=== PATIENT | female | born 1975 | race Caucasian/White ===

== ENCOUNTER 2016-12-28 05:32 | Inpatient (IN) | payer BC, OTHER ==
--- NOTE | 2016-12-25 08:49 | HP ---
DATE OF CLINIC: 12/16/2016 HAFSA BROWN : 1975 PLANNED PROCEDURE: Left total hip arthroplasty DATE OF PROCEDURE: December 28, 2016 SURGEON: Enrike Klein M.D. PCP: Dr. Charlie Pinon HISTORY OF PRESENT ILLNESS Hafsa Brown is a 41 year old female. * Medication list reviewed with patient allergy list reviewed with patient. Mrs. Brown is in today pre-operatively for her upcoming left total hip arthroplasty with Dr. Klein on 12/28/16. Patient presents in good spirits and is ready to proceed. She denies recent illness, change in health, or prior surgical complications. Her recent consult with Dr. Klein follows: 40-year-old female who is here for discussion of options related to her left hip. She has most recently been seeing Troy Pimentel as well as Dr. Velasquez. She has a history of a slipped capital femoral epiphysis at age 13. This was treated surgically with pinning. She had subsequent hardware removal in 1990. She initially did well, but unfortunately over the last couple of years she has had worsening problems including pain in her groin radiating laterally as well as a sensation of instability. She has tried Aleve without significant improvement. Pain is worse with loaded activities such as stairs, getting out of a chair and startup. She has no radicular symptoms. Minimal problems contralateral side. Treatment recently has included a corticosteroid injection by Dr. Velasquez in June 2015 with marked improvement for "a couple of months". She subsequently had a PRP injection on 10/22/15 that worked well, but was only temporary. She had a 2nd injection 12/16/15 that "never settled". She has modified her activities avoiding provocative activities. She has only mild rest pain. She does have a sensation of unequal leg lengths. Workup has included x-rays as well as a CT scan, both of which are available for my review. Comorbidities include reactive airway disease. She gives a history of "Rheumatoid Arthritis". There is no documentation supporting this. She is a non-smoker. CURRENT MEDICATION * Aleve 220 MG Tablet as needed 0 days, 0 refills * ProAir HFA 108 (90 Base) MCG/ACT Aerosol Solution as directed 30 days, 0 refills PAST MEDICAL/SURGICAL HISTORY Reported: Medical: History of Arthritis, Asthma, and Rheumatoid Arthritis. Surgical / Procedural: Prior surgery Left femur ephysesis 89 Left hip hardware removal 91, Cholecystectomy 2006, and Tonsilectomy 2001. Surgical: * Tonsillectomy * Cholecystectomy * Orthopedic surgery Hip SOCIAL HISTORY Behavioral: Daily coffee consumption and non-smoker never smoked. Smoking status: Never smoker. Alcohol: Alcohol use. ALLERGIES * Erythromycin Reaction: Nausea/Vomiting/Diarrhea * penicillin Reaction: Skin Rashes/Hives * Sulfur Reaction: Skin Rashes/Hives FAMILY HISTORY 4 children living REVIEW OF SYSTEMS Systemic: No fever and no recent weight change. Head: No head symptoms. Cardiovascular: No cardiovascular symptoms. Pulmonary: No pulmonary symptoms. Gastrointestinal: No gastrointestinal symptoms. Psychological: No psychological symptoms. Skin: No skin lesions and no rash. PHYSICAL FINDINGS * Vitals taken 12/16/2016 11:07 am BP-Sitting L 131/87 mmHg 100 - 120/56 - 80 BP Cuff Size Regular Pulse Rate-Sitting 64 bpm 50 - 100 Temp-Oral 97.3 F 96 - 101 Height 68.5 in 59 - 69 Weight 175 lbs 98 - 183 Body Mass Index 26.2 kg/m2 Body Surface Area 1.94 m2 Pain Level 6 Ears, Nose, Throat: * ENT: normal. Lungs: * Clear to auscultation. Cardiovascular: Heart Rate and Rhythm: * Normal. Abdomen: * Normal. Neurological: Motor: * Dominant Hand = Right Hand. Patient is a well-developed, well-nourished female no in acute distress, normal-appearing mood and affect. She has an antalgic, Trendelenburg gait worse at startup. There is some pelvic obliquity. Evaluation of the left hip girdle shows a well-healed prior longitudinal incision consistent with her previous surgery, anterolateral. No tenderness laterally over the trochanter, NT in the groin, NT in the sciatic notch. Supine flexion just past 80 degrees is uncomfortable with groin pain. She has also has significant discomfort with attempts at full extension. In flexion she has neutral internal rotation, 60 degrees ER, 35 degrees of abduction. Patient can adduct to the midline with some discomfort. Thigh is soft and NT. No atrophy or asymmetry compared to the contralateral side. Evaluation of the knee shows no effusion, no focal periarticular tenderness and full motion. She has a normal ligamentous exam. Calf is soft and NT. Distal light touch sensation and motor function are grossly intact and symmetric. Pulses are palpable. Supine SLR is negative. Contralateral hip shows non-irritable motion. No focal periarticular tenderness. TESTS Hip and pelvis films from 09/01/16 were reviewed as well as a CT scan from 09/10/16. These show findings consistent with left slipped capital femoral epiphysis. There is cystic changes likely from her previous screw track within the femoral head. She also has cystic change within the acetabulum seen best on the CT. She has femoral head retroversion likely secondary to her deformity from her previous slipped capital femoral epiphysis. She has degenerative changes with inferomedial spurring as well as superolateral narrowing. Contralateral hip shows blunting of the head and neck interface consistent with Cam type femoral acetabular impingement with a well maintained joint space. ASSESSMENT * Post-traumatic osteoarthritis of left hip History of slipped capital femoral epiphysis with secondary degenerative disease, left hip, and increasing functional restriction. Femoral acetabular impingement, right hip, relatively asymptomatic. PREVIOUS TESTS * Test: CBC WITH DIFF Report Date: 12/09/2016 WBC 7.3 10*3/mL MCV 90.1 fL BASOPHIL 0.6 % RBC 4.83 10*6/uL NEUTROPHILS 66.7 % MCH 29.8 pg MCHC 33.1 g/dL RDW 12.4 % PLATELET COUNT 305 10*3/mL IMM NEUT % 0.3 % IMM NEUT # 0.0 10*3/mL MONOCYTES 6.5 % EOSINOPHIL 1.8 % HCT 43.5 % HGB 14.4 g/L LYMPHOCYTE 24.1 % ANC 4.9 10*3/mL * Test: URINALYSIS Report Date: 12/09/2016 GLUCOSE NEGATIVE PH,URINE 6.0 SPEC. GRAVITY 1.025 KETONE NEGATIVE NITRITE NEGATIVE BLOOD TRACE BILIRUBIN NEGATIVE APPEARANCE CLEAR PROTEIN NEGATIVE COLOR YELLOW LEUK ESTERASE NEGATIVE UROBILINOGEN NORMAL * Test: PROTHROMBIN TIME Report Date: 12/09/2016 PROTIME 10.4 s INR 0.99 * Test: PARTIAL THROMBOPLASTIN TIME Report Date: 12/09/2016 APTT 24.7 s * Test: COMPREHENSIVE METABOLIC PANEL Report Date: 12/09/2016 ALT/SGPT 12 U/L ALBUMIN 4.2 g/dL ALB/GLOB RATIO 2.0 BUN 11 mg/dL BUN/CREAT RATIO 18 CALCIUM 9.4 mg/dL GLUCOSE 86 mg/dL CREATININE 0.6 mg/dL SODIUM 138 meq/L POTASSIUM 4.3 meq/L CHLORIDE 102 meq/L CARBON DIOXIDE 30 meq/L ANION GAP 10 meq/L TOT PROTEIN 6.3 g/dL Low GLOBULIN 2.1 g/dL Low BILI,TOTAL 1.2 mg/dL High AST/SGOT 12 U/L Low ALK PHOSPHATASE 43 U/L GFR 111 High * Test: MRSA SCREEN Report Date: 12/10/2016 MRSA SCREEN NEGATIVE * Test: MSSA SCREEN Report Date: 12/10/2016 MSSA SCREEN NEGATIVE FOR STAPHYLOCOCCUS AUREUS THERAPY * Patient not eligible for fall risk assessment. PLAN * Unilateral primary osteoarthritis, left hip Physical Therapy: PT [facility] [phone] * OTHER OxyCONTIN 10 MG T12A, 1 po q 12 hours-TO BE USED FOR AFTER SURGERY, 10 days, 0 refills TraMADol HCl 50 MG TABS, 1 po q 6 hours prn pain-TO BE USED FOR AFTER SURGERY, 5 days, 0 refills OxyCODONE HCl 5 MG TABS, 1-2 po q 4-6 hours for break thru pain if needed-TO BE USED FOR AFTER SURGERY, 5 days, 0 refills * Total hip replacement -Left Discussed with patient in detail the limitations, expectations as well as risks and possible complications of surgery including, but not limited to wound problems or infection, neurovascular injury, continued hip pain or dysfunction, postop instability including the possibility of dislocation and/or postop leg length discrepancy, and the possibility of prosthetic wear or failure over time that may require additional operative or non-operative treatment. Patient also realizes the perioperative risks including risks associated with anesthesia and would like to proceed. A full PAR conference was held, questions and concerns addressed and informed consent was obtained. Patient will be sent from my office for completion of the preoperative workup. Patient will use enteric coated aspirin 325mg daily for 6 weeks postoperatively for DVT prophylaxis. Patient would like to perform their postop PT at [facility] with total hip arthroplasty protocol. CARE TEAM Charlie Pinon MD [facility] CC: Charlie Pinon MD [facility] RS/sg
[~2016-12-28 05:32] MED LIST: CELECOXIB 200 MG CAPSULE PO ONE; CLINDAMYCIN 900 MG PREMIX 100 ML IV PRN; CLONIDINE HCL 0.1 MG/24 HR (7 DAY PATCH) TD SCH; FAMOTIDINE 20 MG TABLET PO ONE; GABAPENTIN 600 MG TABLET PO ONE; ONDANSETRON 4 MG/2ML 2 ML VIAL IV ONE; OXYCODONE HCL 10 MG TAB.SR PO ONE; TRAMADOL HCL 50 MG TABLET PO ONE
[2016-12-28] MEDS ORDERED: CLINDAMYCIN 900 MG PREMIX 50 ML IV ONE (05:53)
[2016-12-28] MEDS ORDERED: OXYCODONE HCL 10 MG TAB.SR PO ONE (05:54)
[2016-12-28] MEDS ORDERED: GABAPENTIN 600 MG TABLET ONE (05:54)
[2016-12-28] MEDS ORDERED: TRAMADOL HCL 50 MG TABLET ONE (05:54)
[2016-12-28] MEDS ORDERED: FAMOTIDINE 20 MG TABLET ONE (05:54)
[2016-12-28] MEDS ORDERED: ONDANSETRON 4 MG/2ML 2 ML VIAL ONE (05:54)
[2016-12-28] MEDS ORDERED: CLONIDINE HCL 0.1 MG/24 HR (7 DAY PATCH) TD ONE (05:55)
[2016-12-28] MEDS ORDERED: CELECOXIB 200 MG CAPSULE ONE (05:55)
[2016-12-28] MEDS ORDERED: LACTATED RINGERS 1,000 ML ONE (06:10)
[2016-12-28] MEDS ORDERED: IV START KIT ONE (06:11)
[2016-12-28] MEDS ORDERED: FENTANYL 100 MCG/2 ML VIAL ONE (06:31)
[2016-12-28] MEDS ORDERED: PROPOFOL 20 ML IV ONE ×2 (06:31)
[2016-12-28] MEDS ORDERED: MIDAZOLAM HCL 1 MG/ML 2ML VIAL ONE (06:31)
[2016-12-28] MEDS ORDERED: LIDOCAINE 2% (PRES FREE) 5 ML VIAL ONE (06:31)
[2016-12-28] MEDS ORDERED: SPINAL PROCEDURAL TRAY 1 EACH ONE (06:43)
[2016-12-28] MEDS ORDERED: METOPROLOL TARTRATE 1 MG/ML 5ML VIAL ONE ×2 (07:04→07:05)
[2016-12-28] MEDS ORDERED: MIDAZOLAM HCL 5 MG/5 ML VIAL ONE ×2 (07:05→08:28)
[2016-12-28] MEDS ORDERED: TRANEXAMIC ACID 1,000 MG in SODIUM CHLORIDE 0.9% 100 ML IV PRN (07:10)
[2016-12-28] MEDS ORDERED: BUPIVACAINE 0.25% (MDV) 20 ML in SODIUM CHLORIDE 0.9% FLUSH 20 ML IF PRN (07:10)
[2016-12-28] MEDS ORDERED: POLYMYXIN B SULFATE 500,000 UNITS, BACITRACIN 25,000 UNITS in SODIUM CHLORIDE 3 L IRRIG... IR PRN (07:10)
[2016-12-28] MEDS ORDERED: BUPIVACAINE 0.25% (MDV) 24 ML, MORPHINE SULFATE 8 MG, EPINEPHRINE 0.3 MG in SODIUM CHLO... IF PRN (07:10)
[2016-12-28] MEDS ORDERED: EPHEDRINE SULFATE UD SYR 25 MG 25 MG/5 ML SYRINGE IV ONE (09:02)
--- NOTE | 2016-12-28 09:51 | PCMBPN ---
Brief Post Op Note: Date of Procedure: 12/28/16 Preoperative Diagnosis: left hip DJD Postoperative Diagnosis: same Procedure: left DEYANIRA Surgeon: Enrike Klein MD Assist: Margarito Anesthesia: spinal (Adonis) Condition: stable to pAR Complications: none IV Fluids: 2500 mLs of LR Urine Output: 50 mLs Estimated Blood Loss: 200 mLs Tourniquet Time: [N/A] Specimens: [N/A] Implants: trilock Drains: none
[2016-12-28] MEDS ORDERED: MORPHINE SULFATE 4 MG/ML SYRINGE IV PRN (10:01)
[2016-12-28] MEDS ORDERED: PROMETHAZINE HCL 25 MG/ML VIAL IM PRN (10:01)
[2016-12-28] MEDS ORDERED: LABETALOL HCL 5 MG/ML 20ML VIAL IV PRN (10:01)
[2016-12-28] MEDS ORDERED: ONDANSETRON 4 MG/2ML 2 ML VIAL IV PRN ×2 (10:01→10:39)
[2016-12-28] MEDS ORDERED: NALOXONE HCL 0.4 MG/ML VIAL IV PRN (10:01)
[2016-12-28] MEDS ORDERED: ATROPINE SULFATE 0.4 MG/1 ML VIAL IV PRN (10:01)
[2016-12-28] MEDS ORDERED: MEPERIDINE 25 MG/ML SYRINGE IV PRN (10:01)
[2016-12-28] MEDS ORDERED: LACTATED RINGERS 1,000 ML IV SCH (10:15)
[2016-12-28] MEDS ORDERED: CLINDAMYCIN 600 MG PREMIX 600 MG in Premix (D5W) 50 ml 1 EACH IV SCH (10:39)
[2016-12-28] MEDS ORDERED: HYDROXYZINE PAMOATE 25 MG CAPSULE PO PRN (10:39)
[2016-12-28] MEDS ORDERED: TEMAZEPAM 15 MG CAPSULE PO PRN (10:39)
[2016-12-28] MEDS ORDERED: CALCIUM CARBONATE 500 MG TAB.CHEW PO PRN (10:39)
[2016-12-28] MEDS ORDERED: ALBUTEROL SULFATE 200 PUFFS/INH INHALER IH PRN (10:39)
[2016-12-28] MEDS ORDERED: TRAMADOL HCL 50 MG TABLET PO PRN ×2 (10:39→16:30)
--- NOTE | 2016-12-28 10:39 | RAD ---
PELVIS HISTORY: Postop left DEYANIRA COMPARISONS: CT 09/10/2016 and plain films 09/01/2016 FINDINGS: Single supine view of the pelvis demonstrates changes from total left hip arthroplasty. Hardware is intact without signs of failure or loosening given the single projection. No definite fracture or dislocation. IUD projects within the pelvis. The upper portions of the pelvis are not visualized off the edge of the image. IMPRESSION: Satisfactory postoperative exam.
[2016-12-28] MEDS ORDERED: ALBUTEROL SULFATE MDI 60 PUFFS/INHALER IH PRN (10:59)
[2016-12-28] MEDS ORDERED: PUMP TUBING ONE (11:06)
[2016-12-28] MEDS: HYDROMORPHONE HCL 0.5 MG/0.5 ML SYRINGE IV PRN ×2 (11:08→18:33)
[2016-12-28] MEDS: D5 1/2NS with 20 mEq KCL 1,000 ML IV SCH ×2 (11:08→19:38)
[2016-12-28 11:25] VITALS: BMI 25.8
[2016-12-28] MEDS: OXYCODONE HCL 5 MG TABLET PO PRN ×3 (11:42→21:00)
[2016-12-28] MEDS: ACETAMINOPHEN 500 MG TABLET PO SCH ×3 (11:42→22:11)
[2016-12-28] MEDS: CLINDAMYCIN 600 MG PREMIX 600 MG in Premix (D5W) 50 ml 1 EACH IV SCH ×2 (14:24→20:54)
[2016-12-28] MEDS: KETOROLAC TROMETHAMINE 30 MG/ML 1 ML VIAL IV PRN (15:39)
[2016-12-28] MEDS: ASCORBIC ACID 500 MG TABLET PO SCH (21:00)
[2016-12-28] MEDS: DOCUSATE SODIUM 100 MG CAPSULE PO SCH (21:00)
[2016-12-29] MEDS: KETOROLAC TROMETHAMINE 30 MG/ML 1 ML VIAL IV PRN ×2 (02:00→09:11)
[2016-12-29] MEDS: OXYCODONE HCL 5 MG TABLET PO PRN ×6 (02:01→21:55)
[2016-12-29] MEDS: HYDROMORPHONE HCL 0.5 MG/0.5 ML SYRINGE IV PRN ×2 (02:02→10:49)
[2016-12-29] MEDS: D5 1/2NS with 20 mEq KCL 1,000 ML IV SCH ×3 (03:51→17:52)
[2016-12-29] MEDS: ACETAMINOPHEN 500 MG TABLET PO SCH ×4 (03:52→21:55)
[2016-12-29] MEDS ORDERED: REMOVE PATCH 1 EACH UNIT TD SCH (05:30)
[2016-12-29 06:18] LABS: HEMATOCRIT 32.3 % (37.0-47.0); HEMOGLOBIN 10.5 gm/l (12.0-16.0); MEAN CELL VOLUME 93.4 fl (81.0-99.0); MEAN CORPUSCULAR HEMOGLOBIN 30.3 pg (27.0-31.0); MEAN CORPUSCULAR HGB CONC 32.5 g/dl (33.0-37.0); RED CELL DISTRIBUTION WIDTH 12.9 % (11.5-14.5)
[2016-12-29] MEDS: MULTIVITAMINS 1 TAB TABLET PO SCH (09:13)
[2016-12-29] MEDS: ASCORBIC ACID 500 MG TABLET PO SCH ×2 (09:13→21:42)
[2016-12-29] MEDS: CELECOXIB 200 MG CAPSULE PO SCH (09:13)
[2016-12-29] MEDS: ASPIRIN (ENTERIC COATED) 325 MG TABLET.EC PO SCH (09:13)
[2016-12-29] MEDS: DOCUSATE SODIUM 100 MG CAPSULE PO SCH ×2 (09:13→21:42)
[2016-12-29] MEDS ORDERED: MAGNESIUM HYDROXIDE 30 ML UDCUP PO PRN (09:52)
[2016-12-29] MEDS ORDERED: REMOVE PATCH 1 EACH UNIT TD ONE (09:52)
--- NOTE | 2016-12-29 11:04 | PDOC43 ---
- Subjective Findings: Pt seen this morning has just got back in bed. She has been up with PT/OT. States she seems painful since the activity. Otherwise seems to be doing well. Subjective: Reports Flatus, Reports Pain Tolerable, Denies Chest Pain, Denies Shortness of Breath, Denies Nausea, Denies Vomiting, Denies Fever - Objective Vital Signs Temperature 97.5 F 12/29/16 07:16 Pulse Rate 59 12/29/16 07:16 Respiratory Rate 16 12/29/16 07:16 Blood Pressure 96/57 12/29/16 07:16 O2 Saturation by Pulse Oximetry 99 12/29/16 07:16 Oxygen Delivery Method Room Air Oxygen Flow Rate 0 Laboratory 12/29/16 05:30 12/29/16 05:30 12/29/16 05:30 RBC 3.46 L MCHC 32.5 L Anion Gap 5 L Estimated GFR 111 H Calcium 8.0 L Active Medication Orders Category Date Time Status Acetaminophen [Tylenol] Med 12/28/16 10:39 Active 1,000 mg PO Q6H Albuterol Sulfate Mdi [Ventolin Hfa Mdi] Med 12/28/16 10:59 Active 0 puffs IH Q4-6H PRN Ascorbic Acid [Vitamin C] Med 12/28/16 21:00 Active 500 mg PO BID Aspirin (Enteric Coated) [Ecotrin] Med 12/29/16 09:00 Active 325 mg PO DAILY Atropine Sulfate Med 12/28/16 10:01 Active 0.2 mg IV X1 PRN Bisacodyl [Dulcolax] Med 12/31/16 09:52 Active 10 mg NM DAILY PRN Calcium Carbonate [Tums] Med 12/28/16 10:39 Active 1,000 - 2,000 mg PO Q2H PRN Celecoxib [Celebrex] Med 12/29/16 09:00 Active 200 mg PO DAILY D5 1/2NS with 20 mEq KCL [D51/2NS with 20 mEq KCL] 1, Med 12/28/16 10:39 Active 000 ml IV 125 mls/hr Docusate Sodium [Colace] Med 12/28/16 21:00 Active 100 mg PO BID Hydromorphone HCl [Dilaudid] Med 12/28/16 10:39 Active 0.5 mg IV Q1H PRN Hydroxyzine Pamoate [Vistaril] Med 12/28/16 10:39 Active 25 - 50 mg PO Q4H PRN Labetalol HCl [Trandate] Med 12/28/16 10:01 Active 5 mg IV Q5M PRN Magnesium Hydroxide [Milk of Magnesia] Med 12/29/16 09:52 Active 30 ml PO DAILY PRN Meperidine [Demerol] Med 12/28/16 10:01 Active 25 mg IV Q10M PRN Morphine Sulfate Med 12/28/16 10:01 Active 2 mg IV Q5M PRN Multivitamins [One-A-Day] Med 12/29/16 09:00 Active 1 tab PO DAILY Naloxone HCl [Narcan] Med 12/28/16 10:01 Active 0.2 mg IV X1 PRN Ondansetron 4 mg/2ml Vial [Zofran] Med 12/28/16 10:39 Active 4 - 6 mg IV Q6H PRN Ondansetron 4 mg/2ml Vial [Zofran] Med 12/28/16 10:01 Active 4 mg IV X1 PRN Oxycodone HCl [Roxicodone] Med 12/28/16 10:39 Active 5 - 10 mg PO Q4H PRN Promethazine HCl [Phenergan] Med 12/28/16 10:01 Active 12.5 - 25 mg IM X1 PRN Sodium Chloride 0.9% Flush [Normal Saline 10ml Flush] Med 12/28/16 10:39 Active 10 - 50 ml IV PRN PRN Sodium Chloride 0.9% Flush [Normal Saline 10ml Flush] Med 12/28/16 17:00 Active 10 ml IV Q8HR Temazepam [Restoril] Med 12/28/16 10:39 Active 15 mg PO BEDTIME PRN Tramadol HCl [Ultram] Med 12/28/16 16:30 Active 50 mg PO Q6H PRN Intake and Output 12/27/16 12/28/16 12/29/16 23:59 23:59 23:59 Intake Total 4025 3027 Output Total 0 1350 Balance 2000 1677 General: Afebrile HEENT: Atraumatic Lungs: Normal Air Movement Abdomen: Non-Distended Skin: Normal Color Neurological: Alert, Oriented x 4 Psych/Mental Status: Normal Affect, Normal Mood - Left Lower Extremity Motor: Extensor Hallucis Longus: 5/5, Tibialis Anterior: 5/5, Gastrocnemius: 5/5 , Peroneals: 5/5, Quadriceps: 3/5 Gross Sensation to Light Touch: Present: Deep Peroneal Nerve, Superficial Peroneal Nerve Motion: Calf soft NT gentle rom hip and knee with out pain Mod assist with SLR - Problems (1) Status post left hip replacement Status: AcuteAssessment/Plan: Pod#1 1. Physical Therapy:Mobilize with PT/OT. Encouraged bed exercise 2. Pain Control:Per protocol 3. DVT Prophylaxis: ASA foot pumps and mobility 4. Disposition:Doing fine at this point 5. Medical Issues:Anticipate DC tomorrow unless pain improves this after noon
[2016-12-30] MEDS: OXYCODONE HCL 5 MG TABLET PO PRN ×3 (03:09→11:54)
[2016-12-30] MEDS: ACETAMINOPHEN 500 MG TABLET PO SCH ×2 (04:24→10:38)
[2016-12-30] MEDS: D5 1/2NS with 20 mEq KCL 1,000 ML IV SCH ×2 (04:42→10:30)
[2016-12-30 06:57] LABS: HEMATOCRIT 31.9 % (37.0-47.0); HEMOGLOBIN 10.6 gm/l (12.0-16.0)
--- NOTE | 2016-12-30 08:38 | PDOC43 ---
- Subjective Findings: Ortho POD 2 L DEYANIRA Patient awake, A and O times 4 this am and in good spirits. No present c/o. Patient states abdominal discomfort from yesterday as passed. Pain is well controlled on orals. Denies CP/SOB/NV. Taking a regular diet and positive flatus. Good progress with ambulatory PT. Is eager for discharge home today. - Objective Vital Signs Temperature 98.8 F 12/30/16 03:20 Pulse Rate 76 12/30/16 03:20 Respiratory Rate 18 12/30/16 03:20 Blood Pressure 112/58 12/30/16 03:20 O2 Saturation by Pulse Oximetry 98 12/30/16 03:20 Oxygen Delivery Method Room Air Oxygen Flow Rate 0 Laboratory 12/30/16 06:15 12/29/16 05:30 Active Medication Orders Category Date Time Status Acetaminophen [Tylenol] Med 12/28/16 10:39 Active 1,000 mg PO Q6H Albuterol Sulfate Mdi [Ventolin Hfa Mdi] Med 12/28/16 10:59 Active 0 puffs IH Q4-6H PRN Ascorbic Acid [Vitamin C] Med 12/28/16 21:00 Active 500 mg PO BID Aspirin (Enteric Coated) [Ecotrin] Med 12/29/16 09:00 Active 325 mg PO DAILY Atropine Sulfate Med 12/28/16 10:01 Active 0.2 mg IV X1 PRN Bisacodyl [Dulcolax] Med 12/31/16 09:52 Active 10 mg VT DAILY PRN Calcium Carbonate [Tums] Med 12/28/16 10:39 Active 1,000 - 2,000 mg PO Q2H PRN Celecoxib [Celebrex] Med 12/29/16 09:00 Active 200 mg PO DAILY D5 1/2NS with 20 mEq KCL [D51/2NS with 20 mEq KCL] 1, Med 12/28/16 10:39 Active 000 ml IV 125 mls/hr Docusate Sodium [Colace] Med 12/28/16 21:00 Active 100 mg PO BID Hydromorphone HCl [Dilaudid] Med 12/28/16 10:39 Active 0.5 mg IV Q1H PRN Hydroxyzine Pamoate [Vistaril] Med 12/28/16 10:39 Active 25 - 50 mg PO Q4H PRN Labetalol HCl [Trandate] Med 12/28/16 10:01 Active 5 mg IV Q5M PRN Magnesium Hydroxide [Milk of Magnesia] Med 12/29/16 09:52 Active 30 ml PO DAILY PRN Meperidine [Demerol] Med 12/28/16 10:01 Active 25 mg IV Q10M PRN Morphine Sulfate Med 12/28/16 10:01 Active 2 mg IV Q5M PRN Multivitamins [One-A-Day] Med 12/29/16 09:00 Active 1 tab PO DAILY Naloxone HCl [Narcan] Med 12/28/16 10:01 Active 0.2 mg IV X1 PRN Ondansetron 4 mg/2ml Vial [Zofran] Med 12/28/16 10:39 Active 4 - 6 mg IV Q6H PRN Ondansetron 4 mg/2ml Vial [Zofran] Med 12/28/16 10:01 Active 4 mg IV X1 PRN Oxycodone HCl [Roxicodone] Med 12/28/16 10:39 Active 5 - 10 mg PO Q4H PRN Promethazine HCl [Phenergan] Med 12/28/16 10:01 Active 12.5 - 25 mg IM X1 PRN Sodium Chloride 0.9% Flush [Normal Saline 10ml Flush] Med 12/28/16 10:39 Active 10 - 50 ml IV PRN PRN Sodium Chloride 0.9% Flush [Normal Saline 10ml Flush] Med 12/28/16 17:00 Active 10 ml IV Q8HR Temazepam [Restoril] Med 12/28/16 10:39 Active 15 mg PO BEDTIME PRN Tramadol HCl [Ultram] Med 12/28/16 16:30 Active 50 mg PO Q6H PRN Intake and Output 12/28/16 12/29/16 12/30/16 23:59 23:59 23:59 Intake Total 9686 3091 9797 Output Total 8 3117 2151 Balance 1999 166 -850 Neurological: No Normal Gait (Ambulating with a walker post L DEYANIRA) Peripheral Pulses: Left Posterior Tibialis: 1+, Left Dorsalis Pedis: 1+ - Left Lower Extremity Incision: Well Approximated (with a subcutaneous closure, skin glue and steris. Mild edema, ecchymosis.), No Dressing Saturated, No Shadow Drainage, No Drainage , No Erythema, No Rash - Problems (1) Status post left hip replacement Status: AcuteAssessment/Plan: Ortho POD 2 L DEYANIRA, patient doing well 1. Continue Physical Therapy:Mobilize with PT/OT. Encouraged bed exercise 2. Continue Pain Control:Per protocol 3. Continue DVT Prophylaxis: ASA foot pumps and mobility 4. Disposition:Doing well at this point and may discharge home today after PT if meets criteria. 5. Follow-up with Dr. Klein as scheduled.
[2016-12-30 08:39] VITALS: BP 116/57
[2016-12-30] MEDS: MULTIVITAMINS 1 TAB TABLET PO SCH (08:49)
[2016-12-30] MEDS: DOCUSATE SODIUM 100 MG CAPSULE PO SCH (08:49)
[2016-12-30] MEDS: CELECOXIB 200 MG CAPSULE PO SCH (08:49)
[2016-12-30] MEDS: ASPIRIN (ENTERIC COATED) 325 MG TABLET.EC PO SCH (08:49)
[2016-12-30] MEDS: ASCORBIC ACID 500 MG TABLET PO SCH (08:49)
--- NOTE | 2016-12-31 09:12 | OP ---
HAFSA BROWN [id number] : 1975 DATE OF SURGERY: December 28, 2016 PREOPERATIVE DIAGNOSIS: Degenerative joint disease left hip secondary to previous slipped capital femoral epiphysis. POSTOPERATIVE DIAGNOSIS: Same PROCEDURE: Left Total Hip Arthroplasty COMPONENTS: Tri-Lock size 3 standard offset press-fit femoral stem with a 36+1.5 delta ceramic femoral head, 54mm [place] 100 press-fit acetabular shell with a neutral cross-linked polyethylene liner. SURGEON: Latoya ASSIST: Margarito MENDOZA) ANESTHESIA: Spinal per Adonis EBL: 200 cc URINE OUTPUT: 50cc IVF REPLACEMENT: Per anesthesia, 2.5 liters crystalloid DRAINS: None COMPLICATIONS: None HISTORY: Briefly, patient is a 41-year-old female with clinical and radiographic evidence most consistent with degenerative joint disease of their left hip. She has a history as a child of slipped capital femoral epiphysis treated surgically. They have failed traditional nonoperative measures and at this point desire elective surgical management. For additional details, refer to previously dictated Preoperative History and Physical Exam. A full PAR conference was held, questions and concerns were addressed, and informed consent was obtained. FINDINGS: Fairly significant femoral head deformity. There were areas of eburnation both in the femur and a medial acetabular osteophyte. Bone integrity appeared reasonable of the proximal femur. PROCEDURE: The patient was taken to the operating room and after previously described anesthesia was placed in the lateral decubitus position on the operating room table and held with the peg board positioner. Margarita prominences were well padded and an axillary roll was placed. The left hip girdle and lower extremity were then prepped and draped out in the usual sterile fashion. Preoperative antibiotics were given empirically. Intraoperative DVT prophylaxis consisted of bilateral mechanical foot pumps. Personal filtration suits were used as was a closed room environment. An oblique ten centimeter incision was made using the minimally invasive guide posterior and extending slightly proximal to the greater trochanter. We dissected through subcutaneous tissue down to the gluteus fascia. Electrocautery was used at this point and throughout the duration of the case to establish and maintain hemostasis. The gluteus fascia was incised in line with the incision and the muscle fibers split to expose the underlying bursal tissue. Tranexamic acid was infiltrated over 10 minutes prior to incision, 1 gram dose per protocol. A similar 2nd dose was given at initiation of closure. A deep self retaining field retractor was placed. The short external rotators were identified, the piriformis was tagged and reflected with the underlying capsule which was reflected in a U fashion off the femoral neck and tagged as well for later repair. Release of the capsule allowed for dislocation of the hip and the femoral head was brought up into the operative field. A femoral neck cut was made proximal to the lesser trochanter as per our preoperative templating. We then translated the femur anteriorly exposing the acetabulum. The remaining labrum was excised circumferentially. We reamed to the true acetabular floor and then incrementally up to a 53 as per our preoperative plan at which point we noted circumferential bleeding cancellous bone. This was trialed at approximately 45 degrees of abduction and 20 degrees of anteversion with good fit and stability. We then impacted the true acetabular component which was seated completely. An apical hole cover was placed and we impacted the neutral crosslinked polyethylene liner. Attention was then directed back to the femur. The remaining soft tissue was cleared from the piriformis fossa and we use a rongeur and box osteotome to enter the proximal femoral canal followed by the canal seeker and then the broach only system up to a size 3 matching the patient's upper skagit anteversion with good proximal fill and rotational stability. This was trialed with a standard offset +1.5. The hip was then reduced with good stability to 70 degrees of internal rotation in 90 degrees of flexion and full extension with no instability on external rotation. There was good soft tissue balance and approximately equal leg lengths. Satisfied, trial components were removed and we impacted the true femoral stem. The trunnion was then cleaned and dried and the femoral head was impacted. The hip was then reduced with stability as previously discussed. Satisfied, we turned our attention to closure. The wound was copiously irrigated with antibiotic pulsatile lavage. We then advanced the capsule and piriformis to the gluteus medius insertion. The gluteus fascia was closed with a running number two PDO StratoFix suture. 1st periarticular injection was given at this point per protocol into the capsule, synovium, gluteus and external rotators. The subcutaneous tissue was closed with interrupted 2-0 and 3-0 Vicryl and the skin was closed with a running 4-0 Monocryl stitch with Indermil and Steri-Strips. The 2nd periarticular injection was done at this point per protocol into the subcutaneous tissue superiorly and anteriorly to the incision. A sterile hip dressing was then applied, the patient was returned to the supine position, transferred to their hospital bed, and sent to the postoperative recovery room in stable condition. They tolerated the procedure well. Sponge, instrument, and needle count were correct. LAMBERT/mrw CC: Spike Pinon MD PT ALINA Mace
[2016-12-31] MEDS ORDERED: BISACODYL 10 MG SUP PR PRN (09:52)
--- NOTE | 2016-12-31 12:11 | DS ---
Violeta BROWN [id number] : 1975 DATE OF ADMISSION: December 28, 2016 DATE OF DISCHARGE: December 30, 2016 DISCHARGE DIAGNOSES: Left hip degenerative joint disease. HOSPITAL PROCEDURES: Left total hip arthroplasty SURGEON: Enrike Klein M.D. BRIEF HISTORY: Patient is a 41-year-old female with both clinical and radiographic evidence of advanced DJD of their left hip. For the full history please see the chart note. BRIEF HOSPITAL COURSE: Patient was admitted on December 28, 2016 Dr. Enrike Klein performed a left total hip arthroplasty. Patient was moved to the recovery room in stable condition. They were given 4 doses of antibiotic for empiric coverage. DVT prophylaxis consisted of aspirin 325 mg daily, pneumatic compression, GABI hose and mobility. PT was instituted postop day 1 with left total hip arthroplasty protocol, weightbearing as tolerated. Their incision site remained benign, their vital signs remained stable and they remained neurally and vascularly intact through the duration of the stay. They were discharged home postop day, 2 to continue outpatient PT at [facility] with left total hip arthroplasty protocol, weightbearing as tolerated keeping total hip precautions in mind. DISCHARGE INSTRUCTIONS: 1. Keep the wound site clean and dry, change dressing daily or as needed. 2. Continue the use of GABI hose bilaterally. 3. Ice pack over the wound site prn. 4. Continue total hip precautions. 5. Outpatient PT at [facility] with left total hip arthroplasty protocol, weightbearing as tolerated. MEDICATIONS: 1. Patient is to resume normal preop medications. 2. Anti-coagulation will be with aspirin 325 mg daily for six weeks. 3. Pain management will be with Oxycodone, 5mg 1-2 every 4 hours prn for breakthrough pain, and Tramadol, 50mg every 6 hours prn pain, Celebrex 200 mg by mouth daily for 10 days. 4. Patient was also advised on utilization of a multi-vitamin with mineral daily as well as Vitamin C, 500mg, daily for 1 month. 5. Patient encouraged to take an iron supplement in the form of ferrous sulfate, 325mg daily for 4 weeks. 6. Colace, 100mg, b.i.d. until regular bowel movement. FOLLOW-UP: Please return to the clinic as scheduled for your first scheduled postop check. Prior to that point in time please call with any questions or concerns. Job [id number] CC: [facility] Spike Pinon M.D. PT [facility]
== END 2016-12-30 13:25 | disposition home or self-care (01) | DRG 470 ==
LOC: MS 11:59
PROVIDERS: ADMIT Orthopaedic Surgery; ATTEND Orthopaedic Surgery
PROC: 0SRB04A Replacement of Left Hip Joint with Ceramic on Polyethylene Synthetic Substitute, Uncemented, Open Approach (ICD-10-PCS; principal; 2016-12-28)
DX: M16.52 Unilateral post-traumatic osteoarthritis, left hip (principal); M25.752 Osteophyte, left hip; T14.90 Injury, unspecified; J45.909 Unspecified asthma, uncomplicated; M25.851 Other specified joint disorders, right hip; Z88.2 Allergy status to sulfonamides; Z88.0 Allergy status to penicillin; Z88.1 Allergy status to other antibiotic agents